=== PATIENT | female | born 1970 | race Caucasian/White ===

== ENCOUNTER 2021-08-01 22:40 | Emergency (ER) | payer BC, SELFPAY ==
[2021-08-01 22:48] VITALS: BP 136/71; PULSE 101; RESP 20; TEMP 37.6; O2SAT 95
[2021-08-01 23:36] VITALS: RESP 16
--- NOTE | 2021-08-01 23:39 | PC.NURSE ---
pt has covid. positive test today. now c/o fever that didn't come down despite tylenol/motrin. Pt last took 400 mg of motrin at approx 0930 pm, and this RN educated pt regarding appropriate dose of 600-800mg ibuprofen q8H. resps even/nonlabored, no s/s of distress. pt states that her fever 'got up to 101.8F and is it just going to keep going up? It's down now, of course.
--- NOTE | 2021-08-01 23:55 | ED.GENADULT ---
HPI - General Adult General Chief complaint: Fever Stated complaint: Covid +, fever Time Seen by Provider: 08/01/21 23:45 History of Present Illness HPI narrative: Patient is a 50-year-old female presents to emergency department with chief complaint of fever. Patient reports she was diagnosed with COVID-19 and has been having symptoms for about 6 days patient states today she had a temperature up to 101 reports that she was afraid that the temperature was not coming down the patient denies shortness of breath denies chest pain denies abdominal pain reports a little bit of nausea with this no abdominal pain. Related Data Allergies Allergy/AdvReac Type Severity Reaction Status Date / Time fluticasone Allergy Unknown RASH Verified 08/01/21 23:36 Review of Systems Review of Systems: A 10 system review of systems was completed on the patient and is negative except for what is stated in the HPI. Nursing and ancillary documentation was reviewed. Exam Narrative: GENERAL: Well-appearing, well-nourished, and in no acute distress. HEAD: Normocephalic, atraumatic. EYES: PERRLA and EOMI. ENT: Nares clear, no rhinorrhea or epistaxis. Mucous membranes moist. NECK: Supple. CHEST: Clear to auscultation. No respiratory distress. HEART: Regular rate and rhythm. No murmur heard. Normal peripheral pulses. ABDOMEN: Soft, nontender, nondistended, normal active bowel sounds. EXTREMITIES: Normal range of motion. No edema. SKIN: Warm, dry, no rash. NEURO: No focal deficits. Alert and oriented x3. PSYCH: Normal mood and affect. Course Vital Signs Vital signs: Vital Signs Temperature 37.6 C 08/01/21 22:48 Pulse Rate 101 H 08/01/21 22:48 Respiratory Rate 20 08/01/21 22:48 Blood Pressure 136/71 08/01/21 22:48 Pulse Oximetry 95 08/01/21 22:48 Temperature 37.6 C 08/01/21 22:48 Pulse Rate 101 H 08/01/21 22:48 Respiratory Rate 16 08/01/21 23:36 Blood Pressure 136/71 08/01/21 22:48 Pulse Oximetry 95 08/01/21 22:48 Medical Decision Making Vital Signs Vital Signs: Vital Signs Temperature 37.6 C 08/01/21 22:48 Pulse Rate 101 H 08/01/21 22:48 Respiratory Rate 20 08/01/21 22:48 Blood Pressure 136/71 08/01/21 22:48 Pulse Oximetry 95 08/01/21 22:48 Temperature 37.6 C 08/01/21 22:48 Pulse Rate 101 H 08/01/21 22:48 Respiratory Rate 16 08/01/21 23:36 Blood Pressure 136/71 08/01/21 22:48 Pulse Oximetry 95 08/01/21 22:48 Discharge Plan Discharge Clinical Impression: Acute viral syndrome Patient Disposition: Home, Self-Care Condition: Stable Instructions: Antibiotic Form, COVID-19 (Coronavirus Disease 2019) (ED), Viral Syndrome (ED) Follow-up/Referrals: Selma,Jaison Painting MD [Primary Care Provider] - Time of Disposition: 23:57
[2021-08-02 00:10] VITALS: BP 120/81; PULSE 87; RESP 18; TEMP 37.3; O2SAT 96
== END 2021-08-02 00:14 | disposition home or self-care (01) ==
PROVIDERS: Emergency Provider Emergency Medicine; PCP Family Medicine
DX: U07.1 COVID-19 (principal)
CPT/HCPCS: 99281

== ENCOUNTER 2021-08-05 11:23 | Emergency (ER) | payer BC, SELFPAY ==
--- NOTE | ~2021-08-05 | XR_ITS ---
EXAMINATION: XR chest 2V EXAM DATE: 08/05/2021 12:12 INDICATION: Cough fever x 9 days, positive covid 4 days ago. TECHNIQUE: Frontal and lateral projections of the chest obtained and reviewed. There is no prior aracely dy for comparison. FINDINGS: Ill-defined bilateral airspace disease suspected, could be developing viral pneumonia. Hea rt is normal in size. No pneumothorax or pleural effusion. There are no osseous abnormalities identif ied. IMPRESSION: Ill-defined bilateral airspace disease suspected, could be developing viral pneumonia. Reviewed, dictated and finalized at location B. IMPRESSION: Ill-defined bilateral airspace disease suspected, could be develop ing viral pneumonia.
[2021-08-05 11:35] VITALS: BP 94/76; PULSE 96; RESP 20; TEMP 37; O2SAT 95
--- NOTE | 2021-08-05 11:40 | ED.URI ---
HPI - URI/Sore Throat General Chief Complaint: Fever Stated Complaint: Covid positive 10 days Time Seen by Provider: 08/05/21 11:40 Source: patient and RN notes reviewed History of Present Illness HPI Narrative: Patient is a 50-year-old female who presents the urgent care with complaints of a fever for the last 10 days. Patient was on an antibiotic recently for possible sinus infection. Patient states that she found out on Monday that she was Covid positive. States that she went to the emergency room within the last few days and they did nothing for her . Patient has also complained of a slight cough, postnasal drainage and body aches. Patient states that she has been taking Tylenol and ibuprofen. No other acute complaints. No acute distress noted. Patient aware of the plan of care. Some parts of this dictation were generated by voice recognition software and may contain typographical and/or grammatical inaccuracies. Related Data Allergies Allergy/AdvReac Type Severity Reaction Status Date / Time fluticasone Allergy Unknown RASH Verified 08/05/21 11:28 Review of Systems Review of Systems: CONSTITUTIONAL: Reports of fevers and fatigue EYES: Denies visual changes, redness, or discharge. ENT: Reports of rhinorrhea, postnasal drainage CARDIOVASCULAR: Denies chest pain, palpitations, or edema. RESPIRATORY: Reports a mild cough with intermittent dyspnea GASTROINTESTINAL: Denies abdominal pain, nausea, vomiting, or diarrhea. GENITOURINARY: Denies dysuria or hematuria. SKIN: Denies rash or itching. MUSCULOSKELETAL: Denies back pain, joint pain. Reports of body aches NEUROLOGIC: Denies headache, numbness, or weakness. All other systems reviewed are negative, except as documented in HPI. PMFSH Comments At the time of my signature, I reviewed and agree with the nursing past medical, surgical, social, and family history. There is no relevant family history pertinent to the patient complaint. Exam Narrative: GENERAL: This is a well-nourished, well-developed patient, in no apparent distress. HEAD: normocephalic, atraumatic. EYES: PERRL. Sclera clear/white. Vision is grossly intact. EARS: External ears normal, auditory canals clear and without drainage, TMs normal without perforation. Hearing grossly intact. NOSE: External nose normal with no obvious nasal discharge, nares without redness, no rhinorrhea. THROAT: Mucous membranes moist, posterior pharynx clear. Mild postnasal drainage NECK: Neck supple, non-tender without lymphadenopathy CARDIOVASCULAR: Regular rate and rhythm without murmurs, gallops, or rubs. RESPIRATORY: Clear to auscultation. Decreased bibasilar SKIN: warm, intact with no suspicious lesions or rash, good texture and turgor. NEURO: awake, alert, and oriented to person, place and time. There were no obvious focal neurologic abnormalities. EXTREMITIES: No clubbing, cyanosis, or edema. Course Vital Signs Vital signs: Vital Signs Temperature 98.6 F 08/05/21 11:35 Pulse Rate 96 08/05/21 11:35 Respiratory Rate 20 08/05/21 11:35 Blood Pressure 94/76 L 08/05/21 11:35 Pulse Oximetry 95 08/05/21 11:35 Temperature 98.6 F 08/05/21 11:35 Pulse Rate 96 08/05/21 11:35 Respiratory Rate 20 08/05/21 11:35 Blood Pressure 94/76 L 08/05/21 11:35 Pulse Oximetry 95 08/05/21 11:35 Reviewed MDM - URI/Sore Throat MDM Narrative Medical decision making narrative: Reviewed x-ray results with the patient. She is aware that chest x-ray does show possible developing a viral pneumonia. Advised the patient to a start antibiotic regimen as prescribed. Be sure you are eating and drinking with the medication. Complete the oral steroid regimen as prescribed. Use the inhaler as needed for shortness of breath. Stressed to the patient that her blood pressure is low and she likely has some dehydration. It is very important to push fluids. Use Tylenol/ibuprofen as needed for fevers. If you develop any increase
[2021-08-05 12:30] VITALS: BP 100/60; PULSE 80
== END 2021-08-05 12:30 | disposition home or self-care (01) ==
PROVIDERS: Emergency Provider Nurse Practitioner Family; PCP Family Medicine
DX: U07.1 COVID-19 (principal)
CPT/HCPCS: 71046; 99213; G0463

== ENCOUNTER 2023-06-04 10:37 | Emergency (ER) | payer BC, SELFPAY ==
--- NOTE | 2023-06-04 10:43 | ED.URI ---
HPI - URI/Sore Throat General Chief Complaint: Upper Respiratory Infection Stated Complaint: cough Time Seen by Provider: 06/04/23 10:50 Source: patient and RN notes reviewed Mode of arrival: ambulatory Limitations: no limitations History of Present Illness HPI Narrative: 17-year-old female presents with concern for one-week history of sinus congestion, sinus pain, postnasal drainage and cough. Reports she is trying [id number] medications such as Sudafed without relief. She denies fever, body aches, chills, sweats. Reports general malaise MD elicited complaint: cough, nasal congestion and sinus pain Related Data Home Medications Medication Instructions Recorded Confirmed No Home Medications 06/04/23 06/04/23 Allergies Allergy/AdvReac Type Severity Reaction Status Date / Time No Known Allergies Allergy Verified 06/04/23 10:51 Review of Systems Review of Systems: CONSTITUTIONAL: Reports malaise. Denies chills, sweats, or fever. EYES: Denies visual changes, redness, or discharge. ENT: Reports rhinorrhea, congestion, sinus pain, otalgia. Denies sore throat. CARDIOVASCULAR: Denies chest pain, palpitations, or edema. RESPIRATORY: Reports cough. Denies dyspnea. GASTROINTESTINAL: Denies abdominal pain, nausea, vomiting, diarrhea SKIN: Denies rash or itching. MUSCULOSKELETAL: Denies myalgia. NEUROLOGIC: Denies headache. All systems reviewed & are unremarkable except as noted in HPI and below PMFSH Comments At time of signature, agree with nursing past medical, surgical, social and family history. There is no relevant family history pertinent to the presenting complaint Exam Narrative: GENERAL: Well-appearing, well-nourished, and in no acute distress. HEAD: Normocephalic EYES: PERRLA, conjunctivae clear ENT: Nares clear, turbinates edematous and erythematous, clear discharge. Mucous membranes moist. TM pearly malhotra with dull light reflex bilaterally; no tragal tenderness. Oropharynx not erythematous without lesions. Tonsils not enlarged and without exudate, no drooling, no hoarseness, no trismus, uvula midline. NECK: Supple. No lymphadenopathy CHEST: Clear to auscultation, breath sounds equal. No wheezing, rhonchi, rales, or stridor. No respiratory distress, speaks in full sentences. HEART: Regular rate and rhythm. No murmur heard. SKIN: Warm, dry, no rash. NEURO: Alert and oriented x3. PSYCH: Normal mood and affect Course Course Emergency Course: Patient is aware of diagnosis, understands and agrees to treatment plan. Anticipatory guidance given. Patient agrees to follow-up as directed and is aware of reasons to seek care at the emergency department. Portions of this record may have been created with voice recognition software Level of Care: Express Care Visit Vital Signs Vital signs: Reviewed. MDM - URI/Sore Throat MDM Narrative Medical decision making narrative: Differential diagnosis considered: [place] virus, strep pharyngitis, allergic rhinitis, upper respiratory tract infection, sinusitis, rhinosinusitis, nasopharyngitis. viral pharyngitis, otitis media, otitis externa, pneumonia, bronchitis, viral cough syndrome, viral syndrome, and influenza. Exam findings show no acute concerns or changes; patient is non-toxic appearing and is in no distress. Patient is appropriate for outpatient treatment and follow-up. Lab Data Attestation: I reviewed the patient's lab results. Critical Care Time Critical Care Time Critical Care Time: No Discharge Plan Discharge Clinical Impression: Sinobronchitis Patient Disposition: Home, Self-Care Condition: Stable Instructions: Antibiotic Form, Sinusitis (ED) Additional Instructions: Take medications as directed Recommend antihistamine such as Benadryl at night time and Zyrtec or Casandra during the day Also, recommend symptomatic treatment includes: rest, fluids, and increase humidity of the air at home. Recommend Acetaminophen as directed
[2023-06-04 10:44] VITALS: BP 109/75; PULSE 84; RESP 16; TEMP 36.7; O2SAT 98
== END 2023-06-04 10:58 | disposition home or self-care (01) ==
PROVIDERS: Emergency Provider Nurse Practitioner; PCP Family Medicine
DX: J32.9 Chronic sinusitis, unspecified (principal); J40 Bronchitis, not specified as acute or chronic
CPT/HCPCS: 99211; G0463

== ENCOUNTER 2023-11-09 00:09 | Day surgery (SDC) | payer BC, SELFPAY ==
[2023-10-18 15:02] VITALS: BMI 39.1
--- NOTE | 2023-11-07 12:02 | SUR.PREOP ---
Patient called regarding upcoming procedure. Reviewed preop instructions, appointment times, and procedure prep.
--- NOTE | 2023-11-08 18:15 | PM.HPGS ---
History of Present Illness History of Present Illness Consent: Risks, benefits, and alternatives have been discussed and questions answered. Patient agrees to proceed with procedure. Chief complaint: Family Hx of Colon Cancer Narrative: Tanvi Darden is a 53 year old female Referred for colon cancer screening. She has a family history of colon cancer. Review of Systems Review of Systems: All systems reviewed & are unremarkable except as noted in HPI and below PMFSH Social History Social History Smoking status: Never smoker Substance use: never Substance use type: does not use Living arrangements: with family Spiritual care concerns: No Meds Home Medications and Allergies Home Medications Medication Instructions Recorded Confirmed Type No Home Medications 10/18/23 11/09/23 History Allergies Allergy/AdvReac Type Severity Reaction Status Date / Time No Known Allergies Allergy Verified 11/09/23 09:51 Exam Resp: Auscultation: clear to auscultation bilaterally Cardio: Rate: regular rate Rhythm: regular rhythm GI: GI Palp: Yes Soft to palpation and No Tenderness to palpation present (GI) Assessment and Plan Assessment and plan (1) Colon cancer screening: Code(s): Z12.11 - Encounter for screening for malignant neoplasm of colon Status: Acute Assessment and Plan: Colonoscopy with possible biopsy or polypectomy or cautery or injection of substances.
[2023-11-09 09:52] VITALS: BP 117/70; PULSE 88; RESP 18; TEMP 36.2; O2SAT 98; BMI 39.5
[2023-11-09] MEDS: LACTATED RINGERS 1,000 ML 150 ML IV CONT (10:05)
--- NOTE | 2023-11-09 10:33 | P.PNAN_ITS ---
Anes - Initial Pre Proc Eval Procedure: Operation Date: 11/09/23 11:00 Proposed Procedures p Colonoscopy - Erickson Marie MD Date/Time: 11/09/23 10:33 Surgeon: Erickson Marie MD Pre Op Diagnosis: Family Hx of Colon Cancer Patient Data Age: 53 Gender: F Height: 1.68 m Weight: 111.1 kg Last Vital Signs Temp 97.1 F L 11/09/23 09:52 Pulse 88 11/09/23 09:52 Resp 18 11/09/23 09:52 BP 117/70 11/09/23 09:52 Pulse Ox 98 11/09/23 09:52 O2 Del Method Room Air 11/09/23 09:52 Allergies Allergy/AdvReac Type Severity Reaction Status Date / Time No Known Allergies Allergy Verified 11/09/23 09:51 Home Medications Medication Instructions Recorded Confirmed Type No Home Medications 10/18/23 11/09/23 History Patient hx anesthesia problems: none Family hx anesthesia problems: none Results Review: All pre-operative results and documents have been reviewed as part of the pre- operative evaluation. [facility] Social History Social History Smoking status: Never smoker Substance use: never Substance use type: does not use Living arrangements: with family Spiritual care concerns: No Anes - Eval Final PreProcedure Day of Procedure 11/09/23 10:33 Patient weight: morbidly obese Heart: regular rate and rhythm Lungs: clear to auscultation Airway: Mallampati scale class II Neurological: alert and oriented Last oral intake: >/= 8 hours ASA classification: III Emergent: no Anesthetic plan: proceed Anesthesia type and monitoring: general GIVS and standard monitoring Results Review: All pre-operative results and documents have been reviewed as part of the pre- operative evaluation. Informed Consent: The patient's anesthetic plan and its attendant risks and benefits were discussed with the patient/family/POA. Questions were solicited and answers provided to the satisfaction of the patient/family/POA.
[2023-11-09 11:07] VITALS: BP 106/70; PULSE 83; RESP 15; O2SAT 97
[2023-11-09 11:17] VITALS: BP 101/65; PULSE 88; RESP 21; O2SAT 97
[2023-11-09 11:27] VITALS: BP 111/73; PULSE 94; RESP 23; O2SAT 97
== END 2023-11-09 11:35 | disposition home or self-care (01) ==
PROVIDERS: PCP Family Medicine; Visit Provider Internal Medicine Gastroenterology
PROC: 0DJD8ZZ Inspection of Lower Intestinal Tract, Via Natural or Artificial Opening Endoscopic (ICD-10-PCS; CPT 45378; principal; 2023-11-09 11:00)
DX: Z12.11 Encounter for screening for malignant neoplasm of colon (principal); K64.8 Other hemorrhoids; K62.89 Other specified diseases of anus and rectum; E66.01 Morbid (severe) obesity due to excess calories; Z68.39 Body mass index [BMI] 39.0-39.9, adult; Z80.0 Family history of malignant neoplasm of digestive organs
CPT/HCPCS: 45378; J2704; J7120